=== PATIENT | male | born 1975 | race Caucasian/White ===

== ENCOUNTER 2025-11-12 15:46 | Emergency (ER) | payer OTHER ==
[~2025-11-12] VITALS: Ht 170.2 cm; Wt 70.3 kg
[2025-11-12 16:08] VITALS: TEMP 98.2
[2025-11-12] MEDS ORDERED: AZIT250T PO (17:24)
[2025-11-12] MEDS ORDERED: PRED50TA PO (17:24)
[2025-11-12] MEDS ORDERED: dexaMETHasone SOD PHOSPHATE 1 ML ONE (17:30)
[2025-11-12 17:39] VITALS: BP 131/80; O2SAT 98
[2025-11-12] MEDS: dexaMETHasone SOD PHOSPHATE 10 MG/ML VIAL IV ONE (17:39)
== END 2025-11-12 17:39 | disposition home or self-care (01) ==
LOC: ER 16:09
DX: R06.02 Shortness of breath (principal); Z79.52 Long term (current) use of systemic steroids
CPT/HCPCS: 99283; 96374; 71045; J1100